=== PATIENT | male | born 1980 | race Caucasian/White ===

== ENCOUNTER 2021-01-23 00:37 | Observation (INO) | payer SELFPAY ==
[~2021-01-23] VITALS: Ht 177.8 cm; Wt 88.0 kg
[2021-01-23 00:58] LABS: BASOPHILS % (AUTO) 0 % (0-1); EOSINOPHILS % (AUTO) 1 % (1-7); LYMPHOCYTES % (AUTO) 22 % (22-44); MEAN CORPUSCULAR HEMOGLOBIN 31.7 pg (27.5-34.5); MEAN CORPUSCULAR HGB CONC 34.5 g/dL (33.2-36.2); MONOCYTES % (AUTO) 5 % (2-9); NEUTROPHILS % (AUTO) 72 % (42-75); PLATELET COUNT 257 x10^3/uL (130-400); RED BLOOD COUNT 4.49 x10^6/uL (4.38-5.82); RED CELL DISTRIBUTION WIDTH 13.1 % (9.4-14.8)
[2021-01-23 01:00] LABS: MD NO
[2021-01-23] MEDS ORDERED: SODIUM CHLORIDE 0.9% 1,000ML IVBOLUS ONE (01:00)
[2021-01-23] MEDS ORDERED: SODIUM CHLORIDE FLUSH 10ML SYR IVF ONE (01:00)
[2021-01-23 01:11] LABS: ALANINE AMINOTRANSFERASE 26 U/L (12-78); ALBUMIN 3.4 g/dL (3.4-5.0); ANION GAP 6 mmol/L (5-15); CALCIUM 8.4 mg/dL (8.5-10.1); CHLORIDE 107 mmol/L (98-107); CREATININE 0.89 mg/dL (0.7-1.3)
--- NOTE | 2021-01-23 01:12 | NUR ---
Patient BIB air from [facility]. 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 In residential, patient experienced a syncopal episode. He was transported to the [facility] and released from residential; he was dx with Bragada Syndrome. Per [facility], patient was confused. Upon arrival, patient AAOx4, GCS 15. Per EMS, patient was not confused during transport. Patient is in NAD. Respirations even and unlabored. Denies any complaints at this time. Report given to [facility]. Patient care transferred.
[2021-01-23 01:13] LABS: ALKALINE PHOSPHATASE 74 U/L (45-117); BILIRUBIN,TOTAL 0.4 mg/dL (0.2-1.0); TOTAL PROTEIN 6.7 g/dL (6.4-8.2)
--- NOTE | 2021-01-23 01:18 | NUR ---
Elaine - [phone] Spoke with patient's to give an update. She requested a call when a room is assigned to patient.
[2021-01-23] MEDS ORDERED: ONDANSETRON 2MG/ML, 2ML IVPush PRN (01:30)
[2021-01-23 02:22] VITALS: BP 150/92
[2021-01-23] MEDS ORDERED: ACETAMINOPHEN 325 MG TABLET PO PRN (02:30)
== END 2021-01-23 03:55 | disposition home or self-care (01) ==
LOC: ED 01:29 → EDIP 01:44 → INTOOBSV 01:44 → 4EST 02:43 → UNDODISIN 03:55
DX: R55 Syncope and collapse (principal); R94.31 Abnormal electrocardiogram [ECG] [EKG]; F15.10 Other stimulant abuse, uncomplicated; Z88.0 Allergy status to penicillin
CPT/HCPCS: 36415; 80053; 85025; 93005; 96360; 99284; G0378; J7030